=== PATIENT | female | born 1975 | race Caucasian/White ===

== ENCOUNTER 2017-06-16 19:13 | Emergency (ER) | payer OTHER ==
[~2017-06-16] VITALS: Ht 165.1 cm; Wt 54.4 kg
[~2017-06-16 19:13] MED LIST: COREG CR10 MG; INTESTINEX1 CAP PO; KEPPRA500 MG; NEXIUM40 MG/PACK; PEPCID20 MG PO; PROGRAF1 MG; PROTONIX20 MG; ULTRAM50 MG; ZOFRAN4 MG; ZOFRAN4 MG PO; ZYRTEC10 M3
[2017-06-16] MEDS ORDERED: COZAAR50 MG PO (20:03)
[2017-06-16] MEDS ORDERED: IMURAN50 MG PO (20:03)
== END 2017-06-16 21:32 | disposition home or self-care (01) ==
LOC: ER 19:13
DX: B02.9 Zoster without complications (principal)

== ENCOUNTER → 2017-11-01 | Emergency (ER) | payer OTHER ==
[~2017-11-01] VITALS: Ht 165.1 cm; Wt 54.4 kg
[~2017-11-01] MED LIST changes: +COZAAR50 MG PO; +IMURAN50 MG PO
== END | disposition left against medical advice (07) ==
LOC: ER 14:22
DX: Z53.20 Procedure and treatment not carried out because of patient's decision for unspecified reasons (principal)

== ENCOUNTER 2020-12-19 10:39 | Emergency (ER) | payer OTHER ==
[~2020-12-19] VITALS: Ht 165.1 cm; Wt 61.7 kg
== END 2020-12-19 15:42 | disposition home or self-care (01) ==
LOC: ER 10:39
DX: D64.89 Other specified anemias (principal); R42 Dizziness and giddiness; Z03.818 Encounter for observation for suspected exposure to other biological agents ruled out

== ENCOUNTER 2021-02-25 14:17 | Emergency (ER) | payer OTHER ==
[~2021-02-25] VITALS: Ht 165.1 cm; Wt 54.4 kg
[2021-02-25] MEDS ORDERED: PROGRAF1 MG PO (14:28)
== END 2021-02-25 16:13 | disposition home or self-care (01) ==
LOC: ER 14:17
DX: S70.01XA Contusion of right hip, initial encounter (principal); W18.09XA Striking against other object with subsequent fall, initial encounter; Y93.89 Activity, other specified; Y92.413 State road as the place of occurrence of the external cause; Y99.8 Other external cause status